=== PATIENT | male | born 1975 | race Caucasian/White ===

== ENCOUNTER → 2022-05-20 | Outpatient (REF) | payer OTHER, MEDICAID | LOC: M SFHCDERM 12:39 | PROVIDERS: ATTEND Nurse Practitioner Family | DX: L30.8 Other specified dermatitis (principal) ==

== ENCOUNTER → 2024-03-22 | Outpatient (CLI) | payer OTHER ==
[~2024-03-22] MED LIST: LIDOCAINE 1% MDV 20ML VIAL As Ordered ONE
[2024-03-22 12:35] VITALS: TEMP 98.7
[2024-03-22 13:10] VITALS: BP 163/79; O2SAT 100
[2024-03-22 13:31] LABS: BASO % 0.3 % (0.0-1.0); EOS % 0.5 % (0.0-3.0); HEMATOCRIT 46.9 % (42.0-52.0); HEMOGLOBIN 16.2 g/dl (13.5-17.5); LYMPH # 1.6 10^3/uL (1.5-5.0); LYMPH % 26.1 % (24.0-44.0); MEAN CORPUSCULAR HEMOGLOBIN 34.8 pg (27.0-33.0); MEAN CORPUSCULAR HGB CONC 34.5 g/dl (32.0-36.5); MEAN CORPUSCULAR VOLUME 100.6 fl (80.0-96.0); MONO # 0.9 10^3/uL (0.0-0.8); MONO % 13.7 % (2.0-8.0); NEUTROPHILS # 3.7 10^3/uL (1.5-8.5); NEUTROPHILS % 59.1 % (36.0-66.0); PLATELET COUNT, AUTOMATED 301 10^3/uL (150-450); RED BLOOD COUNT 4.66 10^6/uL (4.30-6.10); WHITE BLOOD COUNT 6.3 10^3/uL (4.0-10.0)
== END ==
LOC: M IRPRO 11:47
PROVIDERS: ATTEND Internal Medicine Hematology & Oncology
DX: M89.9 Disorder of bone, unspecified (principal)